=== PATIENT | male | born 1945 | race Two or more races ===

== ENCOUNTER 2022-01-26 06:48 | Day surgery (SDC) | payer MEDICARE, OTHER ==
[~2022-01-26] VITALS: Ht 180.3 cm; Wt 83.9 kg
[~2022-01-26 06:48] MED LIST: AMIO200T33 PO; APIX5TAB PO; APPL300T3 PO; ASPI1TAB19 PO; ATO40T PO; B-COTAB59 PO; CALC-400 PO; CINN500C7 PO; FINA5TAB4 PO; FLUT1SPR5; GABA300C10 PO; GLIM4TAB42 PO; HYDR25TA5 PO; LORA-622 PO; METF-929 PO; METO-159 PO; MULT-928 PO; OXYM0.0511 NAS; PANT40TA2 PO; SITA100T7 PO; [UNRECOGNIZED DRUG - CODE] PO
[2022-01-26] MEDS ORDERED: LIDOCAINE VISCOUS 2% 15ML UD ONE (08:11)
[2022-01-26] MEDS ORDERED: fentaNYL CITRATE 100 MCG/2 ML VL ONE (08:12)
[2022-01-26] MEDS ORDERED: MIDAZOLAM HCL 2MG/2ML 2ml VIAL (1mg/ml) ONE (08:12)
[2022-01-26] MEDS ORDERED: diphenhdrAMINE HCL 50 MG/1 ML VL ONE (08:12)
[2022-01-26 08:15] VITALS: BP 145/93
[2022-01-26] MEDS ORDERED: MIDAZOLAM HCL 2MG/2ML 2ml VIAL (1mg/ml) IV ONE (08:15)
[2022-01-26] MEDS ORDERED: fentaNYL CITRATE 100 MCG/2 ML VL IV ONE (08:15)
[2022-01-26] MEDS ORDERED: LIDOCAINE VISCOUS 2% 15ML UD MT ONE (08:15)
[2022-01-26] MEDS ORDERED: diphenhdrAMINE HCL 50 MG/1 ML VL IV ONE (08:15)
== END 2022-01-26 09:38 | disposition home or self-care (01) ==
LOC: CATH 06:48
PROVIDERS: ATTEND Internal Medicine
DX: I48.91 Unspecified atrial fibrillation (principal); I10 Essential (primary) hypertension; E78.5 Hyperlipidemia, unspecified; I25.2 Old myocardial infarction; Z95.5 Presence of coronary angioplasty implant and graft; E11.9 Type 2 diabetes mellitus without complications; Z87.891 Personal history of nicotine dependence; Z79.02 Long term (current) use of antithrombotics/antiplatelets
CPT/HCPCS: 93312; J2250; J3010; J7030; U0003; 99152

== ENCOUNTER 2022-02-15 11:31 | Emergency (ER) | payer MEDICARE, OTHER ==
[~2022-02-15] VITALS: Ht 154.9 cm; Wt 85.0 kg
[2022-02-15 13:34] LABS: Basophils # (auto) 0 10 ^3/uL (0-0.2); Basophils % (auto) 0.3 % (0.0-2.0); Eosinophils # (auto) 0 10 ^3/uL (0-0.8); Eosinophils % (auto) 0.4 % (0.0-7.0); Hematocrit 30.1 % (41.0-53.0); Hemoglobin 9.7 g/dL (13.5-17.5); Lymphocytes # (auto) 0.9 10 ^3/uL (0.4-5.4); Lymphocytes % (auto) 9.4 % (10.0-50.0); Mean Corpuscular Hemoglobin 30.7 pg (28.0-32.0); Mean Corpuscular Hgb Conc. 32.4 g/dL (32.0-36.0); Mean Corpuscular Volume 94.6 fL (80.0-100.0); Monocytes # (auto) 0.8 10 ^3/uL (0-1.3); Monocytes % (auto) 8.2 % (0.0-12.0); Neutrophils # (auto) 7.6 10 ^3/uL (1.6-8.6); Neutrophils % (auto) 81.7 % (37.0-80.0); Nucleated Red Blood Cells % 0.1 %; Red Blood Cells 3.18 10^6/uL (4.5-5.90); Red Cell Distribution Width 15.7 % (11.8-14.3); White Blood Cell 9.3 10^3/uL (4.4-10.8)
[2022-02-15 13:47] LABS: INR 1.17 (0.9-1.15)
[2022-02-15 13:49] LABS: Albumin 3.2 g/dL (3.4-5.0); Calcium 8.5 mg/dL (8.5-10.1)
[2022-02-15 13:52] LABS: Bilirubin, Total 0.7 mg/dL (0.2-1.0); Total Protein 6.1 g/dL (6.4-8.2)
[2022-02-15] MEDS ORDERED: TETANUS-DIPTH-ACEL PERTUSSIS 0.5ML SYR Tdap IM ONE (14:30)
[2022-02-15] MEDS ORDERED: GABAPENTIN 300 MG CAP PO ONE (19:45)
[2022-02-15 23:21] VITALS: BP 105/57
== END 2022-02-15 21:56 | disposition short-term general hospital (02) ==
LOC: ER 11:31
DX: T79.A22A Traumatic compartment syndrome of left lower extremity, initial encounter (principal); R60.0 Localized edema; N28.9 Disorder of kidney and ureter, unspecified; Z20.822 Contact with and (suspected) exposure to COVID-19; V19.9XXA Pedal cyclist (driver) (passenger) injured in unspecified traffic accident, initial encounter; Y93.89 Activity, other specified; Y92.89 Other specified places as the place of occurrence of the external cause; Y99.8 Other external cause status
CPT/HCPCS: 36415; 71045; 73700; 80053; 85025; 85610; 90471; 90715; 93005; 93971

== ENCOUNTER 2022-09-14 06:36 | Inpatient (IN) | payer OTHER ==
[~2022-09-14] VITALS: Ht 180.3 cm; Wt 91.6 kg
[2022-09-14] VITALS (13 sets, daily range): BP systolic 132–182; BP diastolic 76–94
[~2022-09-14 06:36] MED LIST changes: -AMIO200T33 PO; +ASCO500T11 PO; -METF-929 PO; +MULT-195 OR; -OXYM0.0511 NAS
[2022-09-14] MEDS ORDERED: VANCOMYCIN HCL 1000 MG VL ONE ×2 (06:46→07:01)
[2022-09-14] MEDS ORDERED: TRANEXAMIC ACID 20 ML ONE (06:47)
[2022-09-14] MEDS ORDERED: BUPIVACAINE W/ EPINEPH 0.25% INJ 50ML MDV ONE (06:47)
[2022-09-14] MEDS ORDERED: MORPHINE SULF PF 5 MG/10 ML VIAL ONE (06:50)
[2022-09-14] MEDS ORDERED: KETOROLAC TROMETH 30 MG/ML 1ML VIAL ONE (06:50)
[2022-09-14] MEDS ORDERED: PREGABALIN CAPSULE 75 MG CAP PO ONE (07:00)
[2022-09-14] MEDS ORDERED: CELECOXIB 100 MG CAP PO ONE (07:00)
[2022-09-14] MEDS ORDERED: ACETAMINOPHEN IV 1000 MG/100ML (10MG/ML) IV ONE (07:00)
[2022-09-14] MEDS ORDERED: CELECOXIB 100 MG CAP ONE (07:01)
[2022-09-14] MEDS ORDERED: ACETAMINOPHEN IV 100 ML IV ONE (07:02)
[2022-09-14] MEDS ORDERED: ceFAZolin 1GM/50ML 50 ML IV ONE (07:09)
[2022-09-14] MEDS ORDERED: PREGABALIN CAPSULE 75 MG CAP ONE (07:09)
[2022-09-14] MEDS ORDERED: PROPOFOL 10 MG/ML 20 ML IV ONE (07:23)
[2022-09-14] MEDS ORDERED: MIDAZOLAM HCL 2MG/2ML 2ml VIAL (1mg/ml) ONE (07:23)
[2022-09-14] MEDS ORDERED: fentaNYL CITRATE 100 MCG/2 ML VL ONE (07:23)
[2022-09-14] MEDS ORDERED: DexAMETHasone SOD PHOS 10MG/1ML VIAL INJ ONE (07:23)
[2022-09-14] MEDS ORDERED: TETRACAINE 1% INJ 2 ML VIAL IJ ONE (07:31)
[2022-09-14] MEDS ORDERED: HYDROmorphone HCL 2 MG/ML VL/or syr IV PRN ×2 (08:00→09:15)
[2022-09-14] MEDS ORDERED: DexAMETHasone SOD PHOS 10MG/1ML VIAL INJ IV PRN (08:00)
[2022-09-14] MEDS ORDERED: ONDANSETRON HCL 4 MG/2 ML VIAL IV PRN ×3 (08:00→09:15)
[2022-09-14] MEDS ORDERED: MIDAZOLAM HCL 2MG/2ML 2ml VIAL (1mg/ml) IV PRN (08:00)
[2022-09-14] MEDS ORDERED: NALOXONE HCL 0.4 MG/ML VIAL IV PRN (08:00)
[2022-09-14] MEDS ORDERED: ePHEDrine SULFATE 50 MG/ML AMP IV PRN (08:00)
[2022-09-14] MEDS ORDERED: NALBUPHINE HCL 10 MG/1ml INJECTION SUBCUT ONE (08:00)
[2022-09-14] MEDS ORDERED: hydrALAZINE HCL 20 MG/ML VL IV PRN ×2 (08:00→16:30)
[2022-09-14] MEDS ORDERED: LABETALOL HCL 5 MG/ML 4ML SYRINGE IV PRN (08:00)
[2022-09-14] MEDS ORDERED: GABAPENTIN 300 MG CAP PO PRN (09:00)
[2022-09-14] MEDS ORDERED: MORPHINE SULFATE INJ 2 MG/ml SYRG IV PRN (09:15)
[2022-09-14] MEDS ORDERED: NITROGLYCERIN 0.4 MG SL TAB SL PRN (09:15)
[2022-09-14] MEDS: MULTIPLE VITAMINS W/ MINERALS TAB PO SCH (10:00)
[2022-09-14] MEDS: B-COMPLEX W/ C & FOLIC ACID(NEPHROVITE TAB) PO SCH (10:00)
[2022-09-14] MEDS: APIXABAN 5 MG TAB PO SCH ×2 (10:00→21:26)
[2022-09-14] MEDS: CALCIUM W/VIT D (600MG/400IU) TAB PO SCH (10:00)
[2022-09-14] MEDS: COENZYME Q10 PO SCH (10:00)
[2022-09-14] MEDS: METOPROLOL TARTRATE 50 MG TAB PO SCH ×3 (10:00→22:00)
[2022-09-14] MEDS: ASCORBIC ACID 500 MG TAB PO SCH (10:00)
[2022-09-14] MEDS: DOCUSATE SOD 100 MG CAP PO SCH ×2 (10:00→21:25)
[2022-09-14] MEDS: ASPirin-EC 81 mg tab PO SCH (10:00)
[2022-09-14] MEDS: LACTATED RINGER'S 1,000 ML IV SCH ×2 (10:50→19:15)
[2022-09-14] MEDS ORDERED: ACCU-CHEK COMFORT CURVE STRIP VI SCH (11:30)
[2022-09-14] MEDS: SODIUM CHLOR 0.9% PF (SALINE LOCK) 10ML VIAL/SYR IV SCH ×2 (13:34→22:00)
[2022-09-14] MEDS: HYDROcodone-ACET 5/325MG TAB PO PRN (15:50)
[2022-09-14] MEDS: ceFAZolin 1GM/50ML 50 ML IV SCH ×2 (16:06→21:31)
[2022-09-14] MEDS ORDERED: hydrALAZINE HCL 25 MG TAB PO ONE (16:30)
[2022-09-14] MEDS ORDERED: DEXTROSE (50%) 50ML SYRG IV PRN (16:30)
[2022-09-14] MEDS: LISINOPRIL 20 MG TAB PO SCH (17:01)
[2022-09-14] MEDS: LORATADINE 10 MG TAB PO SCH (17:01)
[2022-09-14] MEDS: ACCU-CHEK COMFORT CURVE STRIP VI SCH ×2 (17:01→22:00)
[2022-09-14] MEDS: FINASTERIDE 5 MG TAB PO SCH (17:01)
[2022-09-14] MEDS: InsuLIN REG 1unit/0.01ml Soln (100units/ml) SC SCH ×2 (17:02→21:37)
[2022-09-14] MEDS: ATORVASTATIN 20 MG TAB PO SCH (21:25)
[2022-09-15] VITALS (13 sets, daily range): BP systolic 86–129; BP diastolic 45–79
[2022-09-15] MEDS: ceFAZolin 1GM/50ML 50 ML IV SCH (04:12)
[2022-09-15] MEDS: LACTATED RINGER'S 1,000 ML IV SCH (05:15)
[2022-09-15] MEDS: FLUTICASONE PROP NASAL SPR 0.05 % (50MCG) 16GM SCH (05:52)
[2022-09-15] MEDS: SODIUM CHLOR 0.9% PF (SALINE LOCK) 10ML VIAL/SYR IV SCH ×3 (05:52→21:45)
[2022-09-15] MEDS: GLIMEPIRIDE 2 MG TAB PO SCH (05:53)
[2022-09-15] MEDS: PANTOPRAZOLE 40 MG TAB PO SCH (05:53)
[2022-09-15] MEDS: InsuLIN REG 1unit/0.01ml Soln (100units/ml) SC SCH ×4 (05:54→21:52)
[2022-09-15] MEDS: ACCU-CHEK COMFORT CURVE STRIP VI SCH ×4 (05:59→21:48)
[2022-09-15] MEDS: HCTZ 25 MG TAB PO SCH (05:59)
[2022-09-15 06:07] LABS: Hematocrit 36.1 % (41.0-53.0)
[2022-09-15 06:29] LABS: Albumin 3.2 g/dL (3.4-5.0); Calcium 8.3 mg/dL (8.5-10.1)
[2022-09-15 06:33] LABS: BUN/Creatinine Ratio 20.3 (10.0-20.0); Bilirubin, Total 0.5 mg/dL (0.2-1.0); Total Protein 6.6 g/dL (6.4-8.2)
[2022-09-15] MEDS: COENZYME Q10 PO SCH (09:34)
[2022-09-15] MEDS: METOPROLOL TARTRATE 50 MG TAB PO SCH ×2 (09:34→21:47)
[2022-09-15] MEDS: B-COMPLEX W/ C & FOLIC ACID(NEPHROVITE TAB) PO SCH (09:35)
[2022-09-15] MEDS: CALCIUM W/VIT D (600MG/400IU) TAB PO SCH (09:35)
[2022-09-15] MEDS: ASPirin-EC 81 mg tab PO SCH (09:35)
[2022-09-15] MEDS: MULTIPLE VITAMINS W/ MINERALS TAB PO SCH (09:36)
[2022-09-15] MEDS: LISINOPRIL 20 MG TAB PO SCH (09:36)
[2022-09-15] MEDS: APIXABAN 5 MG TAB PO SCH ×2 (09:36→21:46)
[2022-09-15] MEDS: DOCUSATE SOD 100 MG CAP PO SCH ×2 (09:36→21:45)
[2022-09-15] MEDS: ASCORBIC ACID 500 MG TAB PO SCH (09:36)
[2022-09-15] MEDS: LORATADINE 10 MG TAB PO SCH (17:16)
[2022-09-15] MEDS: FINASTERIDE 5 MG TAB PO SCH (17:17)
[2022-09-15] MEDS: HYDROcodone-ACET 5/325MG TAB PO PRN (21:46)
[2022-09-15] MEDS: ATORVASTATIN 20 MG TAB PO SCH (21:47)
[2022-09-16 05:00] VITALS: BP 120/81
[2022-09-16] MEDS: HCTZ 25 MG TAB PO SCH (06:21)
[2022-09-16] MEDS: PANTOPRAZOLE 40 MG TAB PO SCH (06:23)
[2022-09-16] MEDS: GLIMEPIRIDE 2 MG TAB PO SCH (06:24)
[2022-09-16] MEDS: FLUTICASONE PROP NASAL SPR 0.05 % (50MCG) 16GM SCH (06:25)
[2022-09-16] MEDS: ACCU-CHEK COMFORT CURVE STRIP VI SCH ×2 (06:25→11:52)
[2022-09-16] MEDS: HYDROcodone-ACET 5/325MG TAB PO PRN (06:31)
[2022-09-16] MEDS: InsuLIN REG 1unit/0.01ml Soln (100units/ml) SC SCH ×2 (06:31→11:54)
[2022-09-16] MEDS: SODIUM CHLOR 0.9% PF (SALINE LOCK) 10ML VIAL/SYR IV SCH ×2 (06:32→13:49)
[2022-09-16 06:53] LABS: Hematocrit 31.7 % (41.0-53.0); Hemoglobin 10.7 g/dL (13.5-17.5)
[2022-09-16 08:36] VITALS: BP 133/88
[2022-09-16] MEDS: COENZYME Q10 PO SCH (08:53)
[2022-09-16] MEDS: ASPirin-EC 81 mg tab PO SCH (08:55)
[2022-09-16] MEDS: METOPROLOL TARTRATE 50 MG TAB PO SCH (08:55)
[2022-09-16] MEDS: DOCUSATE SOD 100 MG CAP PO SCH (08:55)
[2022-09-16] MEDS: APIXABAN 5 MG TAB PO SCH (08:55)
[2022-09-16] MEDS: B-COMPLEX W/ C & FOLIC ACID(NEPHROVITE TAB) PO SCH (08:55)
[2022-09-16] MEDS: ASCORBIC ACID 500 MG TAB PO SCH (08:55)
[2022-09-16] MEDS: CALCIUM W/VIT D (600MG/400IU) TAB PO SCH (08:55)
[2022-09-16] MEDS: LISINOPRIL 20 MG TAB PO SCH (08:56)
[2022-09-16] MEDS: MULTIPLE VITAMINS W/ MINERALS TAB PO SCH (08:58)
[2022-09-16] MEDS ORDERED: INSULIN LANTUS (GLARGINE) 1 /0.01ml (100units/ml) SC SCH (10:00)
[2022-09-16 13:00] VITALS: BP 113/71
[2022-09-16 13:51] VITALS: BP 113/71
== END 2022-09-16 15:06 | disposition home health service (06) | DRG 470 ==
LOC: SUR 06:36 → OVERFLOW 09:11 → TELE-CENTR 12:07
PROVIDERS: ADMIT Orthopaedic Surgery Adult Reconstructive Orthopaedic Surgery; ATTEND Orthopaedic Surgery Adult Reconstructive Orthopaedic Surgery
PROC: 0SRC0J9 Replacement of Right Knee Joint with Synthetic Substitute, Cemented, Open Approach (ICD-10-PCS; principal; 2022-09-14 07:29)
DX: M17.0 Bilateral primary osteoarthritis of knee (principal); E11.9 Type 2 diabetes mellitus without complications; E78.5 Hyperlipidemia, unspecified; I10 Essential (primary) hypertension; M21.161 Varus deformity, not elsewhere classified, right knee; N40.0 Benign prostatic hyperplasia without lower urinary tract symptoms; R00.1 Bradycardia, unspecified; Z96.653 Presence of artificial knee joint, bilateral
CPT/HCPCS: 36415; 73562; 80053; 82962; 85014; 85018; 86850; 86900; 86901; 97110; 97116; 97163; 97530; C1713; G0378; J0131; J0690; J1100; J1815; J1885; J2250; J2405; J2704